=== PATIENT | female | born 1990 | race Two or more races ===

== ENCOUNTER 2017-04-27 10:40 | Emergency (ER) | payer MEDICAID ==
[~2017-04-27] VITALS: Ht 167.6 cm; Wt 49.0 kg
[2017-04-27 10:59] VITALS: BP 125/65
== END 2017-04-27 12:19 | disposition home or self-care (01) ==
LOC: ER 10:40
DX: S10.93XA Contusion of unspecified part of neck, initial encounter (principal); Y08.89XA Assault by other specified means, initial encounter; Y93.89 Activity, other specified; Y92.89 Other specified places as the place of occurrence of the external cause; Y99.8 Other external cause status

== ENCOUNTER 2017-06-29 11:45 | Observation (INO) | payer MEDICAID ==
[~2017-06-29] VITALS: Ht 167.6 cm; Wt 49.0 kg
[2017-06-29 12:16] LABS: Basophils # (auto) 0 uL; Eosinophils # (auto) 0.1 uL; Hemoglobin 11.4 g/dL (12.2-16.2); White Blood Cell 3.5 10^3/uL (4.4-10.8)
[2017-06-29 12:18] LABS: Basophils % (auto) 0.9 % (0.0-2.0); Hematocrit 36.1 % (36.0-46.0); Lymphocytes # (auto) 1.7 uL; Lymphocytes % (auto) 49.8 % (10.0-50.0); Mean Corpuscular Hemoglobin 23.7 pg (28.0-32.0); Mean Corpuscular Hgb Conc. 31.5 g/dL (32.0-36.0); Mean Corpuscular Volume 75.4 fL (80.0-100.0); Monocytes # (auto) 0.2 uL; Monocytes % (auto) 7.1 % (0.0-12.0); Neutrophils # (auto) 1.4 uL; Neutrophils % (auto) 40.2 % (37.0-80.0); Platelet Count (auto) 311 10^3/uL (140-450); Red Cell Distribution Width 16.2 % (11.8-14.3)
[2017-06-29 12:35] LABS: Albumin 4.1 g/dL (3.4-5.0); BUN/Creatinine Ratio 11.9; Calcium 9.4 mg/dL (8.5-10.1); Potassium 3.7 mmol/L (3.5-5.1)
[2017-06-29 12:39] LABS: Bilirubin, Total 0.4 mg/dL (0.2-1.0); Total Protein 7.8 g/dL (6.4-8.2)
[2017-06-29 13:05] LABS: Urine Bacteria NONE SEEN /hpf (None Seen); Urine Blood Negative /uL (Negative); Urine Specific Gravity 1.014 (1.001-1.035); Urine WBC 1 /hpf (0 - 5)
[2017-06-29] MEDS ORDERED: KETOROLAC TROMETH 30 MG/ML 1ML VIAL IV ONE (15:30)
[2017-06-29 18:03] VITALS: BP 106/59
== END 2017-06-29 18:12 | disposition home or self-care (01) | DRG 251 ==
LOC: ER 11:45 → OVERFLOW 15:30 → ER 18:09
PROVIDERS: ADMIT Family Medicine; ATTEND Family Medicine
DX: R10.31 Right lower quadrant pain (principal)
CPT/HCPCS: 36415; 74176; 80053; 81001; 84702; 85025; 96374; 99285; G0378; J1885

== ENCOUNTER 2018-01-13 11:41 | Emergency (ER) | payer MEDICAID ==
[~2018-01-13] VITALS: Ht 167.6 cm; Wt 49.9 kg
[2018-01-13 11:55] VITALS: BP 108/67
[2018-01-13] MEDS ORDERED: ONDANSETRON ODT 4 MG TAB PO ONE (13:45)
[2018-01-13] MEDS ORDERED: KETOROLAC TROMETH 60MG/2ML VIAL IM ONE (14:00)
== END 2018-01-13 14:21 | disposition home or self-care (01) ==
LOC: ER 11:41
DX: R51 Headache (principal); R11.10 Vomiting, unspecified
CPT/HCPCS: 70450; 81025; 96372; 99285; J1885; Q0162

== ENCOUNTER 2019-01-26 12:45 | Emergency (ER) | payer MEDICAID ==
[~2019-01-26] VITALS: Ht 167.6 cm; Wt 48.1 kg
[2019-01-26 12:58] VITALS: BP 120/74
[2019-01-26] MEDS ORDERED: DexAMETHasone SOD PHOS 10MG/1ML VIAL INJ IM ONE (15:30)
== END 2019-01-26 15:48 | disposition home or self-care (01) ==
LOC: ER 12:45
DX: J04.0 Acute laryngitis (principal); R19.7 Diarrhea, unspecified
CPT/HCPCS: 71046; 96372; 99283; J1100

== ENCOUNTER 2019-06-26 09:50 | Emergency (ER) | payer MEDICAID ==
[~2019-06-26] VITALS: Ht 167.6 cm; Wt 49.0 kg
[2019-06-26 09:55] VITALS: BP 132/66
[2019-06-26] MEDS ORDERED: IBUPROFEN 800 MG TAB PO ONE (10:15)
[2019-06-26] MEDS ORDERED: METHOCARBAMOL 500 MG TAB PO ONE (10:15)
== END 2019-06-26 10:39 | disposition home or self-care (01) ==
LOC: ER 09:50
DX: S46.912A Strain of unspecified muscle, fascia and tendon at shoulder and upper arm level, left arm, initial encounter (principal); X50.0XXA Overexertion from strenuous movement or load, initial encounter; Y93.89 Activity, other specified; Y92.89 Other specified places as the place of occurrence of the external cause; Y99.8 Other external cause status